=== PATIENT | male | born 1970 ===

== ENCOUNTER 2016-09-27 06:48 | Emergency (ER) | payer OTHER ==
[2016-09-27 07:01] VITALS: RESP 18
--- NOTE | 2016-09-27 08:13 | C.PDOC ---
History Of Present Illness 45 y/o male c/o painless swelling to his left knee for a month, with no preceding injury. patient now has pain and swelling to his left foot for last 2 days with no injury. pt sts pain is mostly to his proximal foot in 3-5 metatarsal area with swelling, but feels pain in sole of foot and medial aspect as well, denies any calf pain or swelling, no cp or sob, no recent prolonged immobilization or surgery. denies fever and chills. pt took a diclofenac this morning at 6 am, still painful. no hx of gout. Time Seen by Provider: 09/27/16 07:11 Chief Complaint (Nursing): Lower Extremity Problem/Injury History Per: Patient, Family History/Exam Limitations: no limitations Onset/Duration Of Symptoms: Days (2) Severity: Moderate Pain Scale Rating Of: 7 Recent travel outside of the [place]: No Past Medical History Reviewed: Historical Data, Nursing Documentation, Vital Signs Vital Signs: Last Vital Signs Temp 98.2 F 09/27/16 06:57 Pulse 63 09/27/16 06:57 Resp 18 09/27/16 06:57 BP 134/90 09/27/16 07:10 Pulse Ox 98 09/27/16 09:51 - Medical History PMH: No Chronic Diseases Surgical History: No Surg Hx Family History: States: Unknown Family Hx - Social History Hx Tobacco Use: No Hx Alcohol Use: Yes Hx Substance Use: No Review Of Systems Constitutional: Negative for: Fever, Chills Cardiovascular: Negative for: Chest Pain Respiratory: Negative for: Cough, Shortness of Breath Musculoskeletal: Positive for: Foot Pain (left) Skin: Negative for: Rash, Bruising Neurological: Negative for: Weakness, Numbness Physical Exam - Physical Exam Appears: Non-toxic, No Acute Distress Skin: Warm, Dry Head: Atraumatic, Normacephalic Cardiovascular: Rhythm Regular, No Murmur Respiratory: Normal Breath Sounds, Accessory Muscle Use, No Rales, No Rhonchi, No Wheezing Extremity: Normal ROM, Tenderness (mild swelling and warmth to proximal left foot over 3-5 metatarsals, no erythema.+tenderness, skin intact. from at ankle. mild tenderness to sole of foot. ), No Calf Tenderness, Capillary Refill (less than 2 seconds), Other (minimal swelling to left knee with full rom, no erythema , warmth or tenderness. ) Pulses: Left Dorsalis Pedis: Normal, Right Dorsalis Pedis: Normal Neurological/Psych: Oriented x3, Normal Speech, Normal Cognition, Normal Motor, Normal Sensation ED Course And Treatment O2 Sat by Pulse Oximetry: 98 - Other Rad Left foot x-ray X-Ray: Viewed By Me, Read By Radiologist Interpretation: Findings: Foreshortening of the 4th left digit. Moderate hallux valgus deformity. No evidence acute displaced fracture or dislocation. Impression: Foreshortening of the 4th left digit. Moderate hallux valgus deformity. No evidence acute displaced fracture or dislocation. If pain persists, consider MRI. Medical Decision Making Medical Decision Makin45 y/o male with warmth swelling and pain to left foot x 2 days, no injury, no fever; xray foot,. consider gout, infection. 933 am: pt feeling better after percocet and toradol, will d/c with nsaids and keflex to cover for potential infection, with f/u in medical clinic and podiatry clinic. Disposition Counseled Patient/Family Regarding: Studies Performed, Diagnosis, Need For Followup, Rx Given - Disposition Referrals: Non [facility] Provider, [Primary Care Provider] - Podiatry Clinic [Outside] [facility] [Outside] [facility] [Outside] Disposition: HOME/ ROUTINE Disposition Time: 09:43 Condition: IMPROVED Additional Instructions: Srvase carolyn los medicamentos segn lo prescrito. Seguimiento en clnica m dica y en clnicas de podologa; Llamar para citas el lunes. Regrese al ER para cualquier empeoramiento del dolor, fiebre, aumento de la hinchazn o enrojecimiento del pie radha o cualquier otra preocupacin. Prescriptions: Cephalexin [cephalexin] 500 mg PO TID #21 cap Indomethacin [Indocin] 50 mg PO TID #12 cap Instructions: Gout (ED), Swollen Joint (ED) Forms: Gen Discharge Inst Danish Print Language: KYRGYZ - Clinical Impression Clinical Impression: Foot pain, left
[2016-09-27] MEDS ORDERED: Oxycodone/Acetaminophen 5/325 mg Tab PO STA (09:03)
[2016-09-27] MEDS ORDERED: Oxycodone/Acetaminophen 5/325 mg Tab ONE (09:22)
--- NOTE | 2016-09-27 09:47 | RAD ---
Left foot three views History: Pain and swelling. Comparison: None available. Findings: Foreshortening of the 4th left digit. Moderate hallux valgus deformity. No evidence acute displaced fracture or dislocation. Impression: Foreshortening of the 4th left digit. Moderate hallux valgus deformity. No evidence acute displaced fracture or dislocation. If pain persists, consider MRI.
[2016-09-27 10:18] VITALS: BP 122/81; PULSE 82; TEMP 97.6
[2016-09-27 15:48] VITALS: O2SAT 98
== END 2016-09-27 10:05 | disposition home or self-care (01) ==
LOC: C.ER 06:48 → SUPCPDRO 06:48 → C.ER 10:05
DX: M79.672 Pain in left foot (principal)
CPT/HCPCS: 73630; 96372; 99285; J1885